=== PATIENT | male | born 1970 | race Caucasian/White ===

== ENCOUNTER 2019-11-10 09:17 | Inpatient (IN) | payer SELFPAY ==
[~2019-11-10] VITALS: Ht 177.8 cm; Wt 83.5 kg
--- NOTE | 2019-11-10 09:40 | NUR ---
PT CAME TO THE ED TODAY WITH CO HIGH BLOOD SUGAR. PT STATES THAT HE HAS BEEN FEELING " ILL" X 3 WEEKS AND HAS SLOWLY GOTTEN WORSE OVER LAST COUPLE OF DAYS. PT STATES HE HAS BEEN DIABETIC X 3 YEARS AND WAS TOLD TO STOP TAKING INSULIN BY HIS DR BECAUSE IT MAKES HIM " SHAKE" PT HAS NOT BEEN TAKING MEDICATIONS FOR " AWHILE NOW." PT IS AWAKE AND ALERT. PT LETHARGIC. PT SLOW TO RESPOND TO QUESTIONS, BUT IS AWAKE AND ALERT. BREATHING EVEN AND UNLABORED. PT BLOOD SUGAR >600 IN TRIAGE. PT IS HOOKED UP TO FULL MONITORS, SIDE RAILS UP, CALL LIGHT IN REACH, WILL CONTINUE TOMONITOR.
[2019-11-10 09:49] LABS: BASOPHIL % 0.1 % (0-2); PLATELET COUNT 256 x10^3mcL (130-400); RED CELL DISTRIBUTION WIDTH 12.2 % (11.5-14.5)
[2019-11-10 10:10] LABS: ALBUMIN 3.9 g/dL (3.4-5.0); ALKALINE PHOSPHATASE 125 U/L (46-116); ALT/SGPT 75 U/L (16-63); BILIRUBIN TOTAL 0.4 mg/dL (0.20-1.00); CALCIUM 9.1 mg/dL (8.5-10.1); CARBON DIOXIDE 18.7 mmol/L (21-32); CHLORIDE SERUM 82 mmol/L (98-107); CREATININE SERUM 1.2 mg/dL (0.7-1.3); GFR1 > 60 mL/min; LIPASE 181 IU/L (73-393); POTASSIUM SERUM 5.3 mmol/L (3.5-5.1)
[2019-11-10 10:31] LABS: SODIUM SERUM 118 mmol/L (136-145)
[2019-11-10 10:46] LABS: microscopic required? NO
[2019-11-10 10:53] LABS: UA SPECIFIC GRAVITY <=1.005 (1.005-1.035); urine erythrocyte NEGATIVE (NEGATIVE)
[2019-11-10 11:08] LABS: GLUCOSE SERUM 804 mg/dL (74-106)
[2019-11-10 11:16] LABS: AST/SGOT 36 U/L (15-37)
--- NOTE | 2019-11-10 12:00 | NUR ---
PT STATES HE IS FEELING MUCH BETTER. PT AWAKE AND ALERT. BREATHING EVEN ANDUNLABORED. PT HOOKED UP TO FULL MONITORS, WILL CONTINUE TO MONTIOR.
--- NOTE | 2019-11-10 12:01 | NUR ---
ABOVE NOTE DONE BY GAVIN CHE
--- NOTE | 2019-11-10 13:30 | NUR ---
REPORT GIVEN TO TRAVIS ALONSO ON MS/T FOR FURTHER CARE OF PT
[2019-11-10 13:33] LABS: MAGNESIUM 2.3 mg/dL (1.8-2.4); PHOSPHOROUS 4.1 mg/dL (2.5-4.9)
[2019-11-10 13:36] LABS: CHOLESTEROL 303 mg/dL (<200); CHOLESTEROL/HDL RATIO 9.5; HDL CHOLESTEROL 32 mg/dL (40-60); TRIGLYCERIDES 1806 mg/dL (<150)
--- NOTE | 2019-11-10 13:43 | NUR ---
RECEIVED PT FROM ED VIA CHRIS, PT STATED THAT HE WAS NOT FEELING GOOD FOR THE PAST 3 WEEKS, WORSE THE PAST WEEK. AAOX4. DENIES HEADACHE/DIZZINESS. C/O BLURRY VISION. ABLE TO FOLLOW COMMANDS. NO SOB NOTED, LUNG SOUNDS CTA, O2 SAT=96%, RA. DENIES CHEST PAIN/PRESSURE, SINUS TACHYCARDIA ON THE MONITOR. DENIES ABDOMINAL DISCOMFORT. VOIDS. PT STATED THAT HE FEELS MORE THIRSTY THAN USUAL TODAY. IV SITE PATENT AND INTACT. SIDE RAILS UPX2. CALL LIGHT ON REACH. ENDORSED TO PRIMARY NURSE TRAVIS FOR CONTINUITY OF CARE
[2019-11-10 14:04] VITALS: BP 136/99
[2019-11-10 14:07] VITALS: Ht 177.8 cm; Wt 83.5 kg
[2019-11-10 16:33] VITALS: BP 135/93
--- NOTE | 2019-11-10 19:20 | NUR ---
RECEIVED PT FROM GAVIN ROBLES. PT SEEN LYING IN BED, AAOX4. C/O 610 HEADACHE. DENIES DIZZINESS. ABLE TO FOLLOW COMMANDS. NO FACIAL DROOP/ARM DRIFT NOTED. C/O BLURRY VISION ON BOTH EYES. NO SOB NOTED, LUNG SOUNDS CTA. DENIES CHEST PAIN/PRESSURE, SR ON THE MONITOR, HR AT 94. DENIES ABDOMINAL DISCOMFORT. BOWEL SOUNDS ACTIVE. VOIDS. IV SITE PATENT AND INTACT. SIDE RAILS UPX2. CALL LIGHT ON REACH. WILL CONT TO MONITOR
--- NOTE | 2019-11-10 19:39 | NUR ---
HAS BEEN SLEEPING OFF AND ON SINCE ADMISSION. CLEAR LIQUID DIET. LAST ACCUCK 303. NS INFUISNG 150 CC HOUR. INDEPENDENT W ADL'S. VSS. CALL LIGHT WITHIN REACH.
[2019-11-10 20:40] VITALS: BP 130/86
--- NOTE | 2019-11-10 21:10 | NUR ---
DR. DAVID MADE AWARE THAT PT IS REQUESTING IF HIS DIET CAN BE ADVANCED FROM CLEAR LIQUID, RECEIVED AN ORDER THAT PT TO REMAIN ON CLEAR LIQUID FOR TODAY, PT MADE AWARE.
--- NOTE | 2019-11-10 22:13 | NUR ---
PT STATED THAT HE IS SWEATING, RANDOM BLOOD SUGAR QOLYANL=[id number]
--- NOTE | 2019-11-11 02:30 | NUR ---
PT HAS HIS EYES CLOSED, NO S/S OF PAIN AND SOB. CALL LIGHT ON REACH. WILL CONT TO MONITOR
[2019-11-11 05:08] VITALS: BP 136/91
--- NOTE | 2019-11-11 06:27 | NUR ---
DR. DAVID IS PAGEGATED TO MADE AWARE THAT PT REFUSED INSULIN COVERAGE. NO C/O PAIN AND SOB. NEEDS ARE ATTENDED. CALL LIGHT ON REACH. WILL CONT TO MONITOR
--- NOTE | 2019-11-11 07:08 | NUR ---
BEDSIDE REPORT GIVEN TO GUERLINE FOR CONTINUITY OF CARE
[2019-11-11 07:13] LABS: CARBON DIOXIDE 27.9 mmol/L (21-32); CHLORIDE SERUM 98 mmol/L (98-107); CREATININE SERUM 0.7 mg/dL (0.7-1.3); GFR1 > 60 mL/min; GLUCOSE SERUM 227 mg/dL (74-106); SODIUM SERUM 133 mmol/L (136-145)
--- NOTE | 2019-11-11 07:25 | NUR ---
RECEIVED PT FROM FARM MECHANIC APPRENTICE. PT AWAKE, ALERT. A/OX4. PT ON ROOM AIR WITH NO RESP DISTRESS NOTED. PT ON TELE 22, DENIES CHEST PAIN. PERIPHERAL PULSES PALPABLE, NO EDEMA NOTED. ACTIVE BS NOTED. PT DENIES ISSUES WITH ELIMINATION. IV ACCESS LEFT ARM, CDI INFUSING NS AT 150ML/HR. PT AMBULATORY. SAFETY MEASURES IN PLACE, BED LOW AND LOCKED. CALL LIGHT WITHIN REACH.
[2019-11-11 07:43] LABS: CALCIUM 8.1 mg/dL (8.5-10.1)
--- NOTE | 2019-11-11 08:32 | NUR ---
PT REFUSED COLACE AND PANTOPRAZOLE, PT STATES "I DONT WANT ANYTHING THAT IS NOT NECESSARY". EDUCATION PROVIDED ON MEDICATIONS, PT STILL REFUSES. PT STATES "I JUST WANT TO EAT". PT DIET CHANGED TO CONSISTENT CARB DIABETIC, BREAKFAST MEAL TRAY PROVIDED.
[2019-11-11 09:16] VITALS: BP 130/89
[2019-11-11 10:41] LABS: BASOPHIL % 0.2 % (0-2); PLATELET COUNT 206 x10^3mcL (130-400); RED CELL DISTRIBUTION WIDTH 12.9 % (11.5-14.5)
[2019-11-11] MEDS ORDERED: METFORMIN HCL1000 MG PO (10:44)
[2019-11-11] MEDS ORDERED: GLUCOCARD EXPR1 EAC2 MC (10:47)
--- NOTE | 2019-11-11 11:33 | NUR ---
PT BLOOD SUGAR 345. PT REFUSES INSULIN. PT STATES HE IS VERY SENSITIVE TO INSULIN AND DOES NOT WANT HIS BLOOD SUGAR TO GO BELOW 200. BRAD WIRELESS RETAIL MANAGER AWARE. METFORMIN ONE DOSE TO BE GIVEN BEFORE DISCHARGE.
[2019-11-11 12:01] VITALS: BP 141/97
--- NOTE | 2019-11-11 12:19 | NUR ---
METFORMIN ADMINISTERED AT THIS TIME. PT TOLERATED WELL. PT TO BE DISCHARGED TODAY.
[2019-11-11 13:05] VITALS: BP 141/97
--- NOTE | 2019-11-11 14:35 | NUR ---
DISCHARGE INSTRUCTIONS/EDUCATION PROVIDED TO PATIENT. PT TO FOLLOW UP WITH CLINIC PROVIDED IN 2-3 DAYS. PT ENCOURAGED TO ATTEND DIABETIC EDUCATION CLASS. PT VERBALIZED UNDERSTANDING. BS CHECK 327 AT THIS TIME. TELE BOX RETURNED TO PULP MILL OPERATOR. IV ACCESS REMOVED WITH CATHETER INTACT. NO REDNESS OR BLEEDING NOTED. SAFETY MAINTAINED. PT TO BE TAKEN BY WHEELCHAIR TO [facility] FOR DISCHARGE.
--- NOTE | 2019-11-11 17:29 | NUR ---
Discount pharmacy card and list to low cost medical clinics given to patient by Kvng Ji.
== END 2019-11-11 14:45 | disposition home or self-care (01) | DRG 638 ==
LOC: ED 09:17 → DU 12:05
PROVIDERS: Emergency Medicine; ADMIT General Practice
DX: E11.65 Type 2 diabetes mellitus with hyperglycemia (principal); E87.1 Hypo-osmolality and hyponatremia; I10 Essential (primary) hypertension; Z91.19 Patient's noncompliance with other medical treatment and regimen
CPT/HCPCS: 36600; 82962; C9113; G0378; J1815; J2405; J7030; Q0092

== ENCOUNTER 2020-01-16 17:29 | Emergency (ER) | payer SELFPAY ==
[~2020-01-16] VITALS: Ht 177.8 cm; Wt 78.9 kg
[~2020-01-16 17:29] MED LIST: GLUCOCARD EXPR1 EAC2 MC; METFORMIN HCL1000 MG PO
[2020-01-16 17:50] VITALS: Ht 177.8 cm; Wt 78.9 kg
[2020-01-16 21:55] VITALS: BP 125/86
== END 2020-01-16 21:50 | disposition home or self-care (01) ==
LOC: ED 17:29
DX: J11.1 Influenza due to unidentified influenza virus with other respiratory manifestations (principal); F17.200 Nicotine dependence, unspecified, uncomplicated; E11.65 Type 2 diabetes mellitus with hyperglycemia; I10 Essential (primary) hypertension; E78.00 Pure hypercholesterolemia, unspecified; Z88.8 Allergy status to other drugs, medicaments and biological substances
CPT/HCPCS: 82962; 87804; 99406

== ENCOUNTER 2020-01-27 15:26 | Emergency (ER) | payer SELFPAY ==
[~2020-01-27] VITALS: Ht 177.8 cm; Wt 80.7 kg
[2020-01-27 15:46] VITALS: Ht 177.8 cm; Wt 80.7 kg
[2020-01-27 16:41] VITALS: BP 102/710
== END 2020-01-27 16:41 | disposition home or self-care (01) ==
LOC: ED 15:26
DX: J40 Bronchitis, not specified as acute or chronic (principal)